=== PATIENT | female | born 1995 | race African-American/Black ===

== ENCOUNTER 2016-03-11 20:23 | Emergency (ER) | payer OTHER ==
[~2016-03-11] VITALS: Ht 149.9 cm; Wt 107.2 kg
[~2016-03-11 20:23] MED LIST: ANUSOL1 SUPP PR; ATARAX,VISTARIL25 MG PO; CEPHALEXIN250 MG/5 M PO; CEPHALEXIN500 MG PO; CETIRIZINE HCL10 M2 PO; COLACE50 MG PO; ENDOCET 5-3251 EACH PO; FEROSUL220 MG/51 PO; FLEXERIL10 MG PO; FLUTICASONE PRO16 GM BOTH NARES; IBUPROFEN800 MG PO; KEFLEX500 MG PO; LEVAQUIN500 MG PO; MOBIC15 MG PO; MOTRIN600 MG PO; MOTRIN800 MG PO; MUCINEX D ER T1 EACH PO; NAPROSYN500 MG PO; NASONEX17 GM BOTH NARES; NO HOME MEDS; OXYCODONE H5 MG/5 ML PO; PERCOCET 5/31 TABLET PO; PREDNISONE20 MG PO; PROMETHAZINE HC25 M1 PO; TESSALON PERLE100 MG PO; ZOFRAN4 MG PO; ZYRTEC10 M1 PO
[2016-03-11 21:04] LABS: HEMATOCRIT 41.1 % (36.0-46.0); MCH 28.3 PG (29.0-34.0); MCHC 32.6 G/DL (30.0-36.0); MCV 86.9 FL (83-99); MEAN PLAT.VOLUME 10.6 uM^3 (9.5-12.4); PLATELET COUNT 336 K/uL (156-360); RBC DIS.WIDTH-CV 12.8 % (11.8-14.6); RBC DIS.WIDTH-SD 39.9 % (39-53); RED BLOOD COUNT 4.73 M/uL (3.80-5.20); WHITE BLOOD COUNT 13.9 K/uL (4.1-10.2)
[2016-03-11 22:53] LABS: BILIRUBIN NEGATIVE; BLOOD NEGATIVE; COLOR DK YELLOW ((YELLOW)); GLUCOSE (STRIP) NEGATIVE; KETONES TRACE; LEUKOCYTES NEGATIVE; NITRITE NEGATIVE; PROTEIN (STRIP) TRACE; SPECIFIC GRAVITY 1.031 (1.000-1.030)
[2016-03-11 22:56] LABS: ADD MIUA? NO; UCUL ADDED? NO
[2016-03-12 00:27] VITALS: BP 128/77
[2016-03-13 13:44] LABS: CHLAMYDIA TRACHOMATIS NEGATIVE; NEISSERIA GONORRHOEAE NEGATIVE
== END 2016-03-12 00:28 | disposition home or self-care (01) ==
LOC: RME 20:23 → EME 20:23 → RME 03-12 00:28
PROVIDERS: Physician Assistant
DX: R10.30 Lower abdominal pain, unspecified (principal); R19.7 Diarrhea, unspecified; R51 Headache
CPT/HCPCS: 76856; 81003; 84702; 85027; 86900; 86901; 87210; 87491; 87591; 99281; 99284

== ENCOUNTER 2016-07-05 17:13 | Emergency (ER) | payer OTHER ==
[~2016-07-05] VITALS: Ht 149.9 cm; Wt 100.0 kg
[2016-07-05 18:13] LABS: BASOPHIL COUNT 0.1 K/uL (0-0.1); EOSINOPHIL (%) 0.7 % (0-5); EOSINOPHIL COUNT 0.1 K/uL (0-0.3); HEMATOCRIT 40.5 % (36.0-46.0); IMMATURE GRANULOCYTE (%) 0.4 % (0.0-0.7); INSTRUMENT ABS NEUTROPHIL CT 5.5 K/uL; LYMPHOCYTE COUNT 3.8 K/uL (1.0-2.8); MCH 27.4 PG (29.0-34.0); MCHC 31.4 G/DL (30.0-36.0); MCV 87.3 FL (83-99); MEAN PLAT.VOLUME 11.4 uM^3 (9.5-12.4); MONOCYTE (%) 5.3 % (3-12); MONOCYTE COUNT 0.5 K/uL (0-0.8); NEUTROPHIL (%) 55.1 % (45-76); NEUTROPHIL COUNT 5.5 K/uL (1.8-6.4); PLATELET COUNT 267 K/uL (156-360); RBC DIS.WIDTH-CV 13.1 % (11.8-14.6); RBC DIS.WIDTH-SD 41.6 % (39-53); RED BLOOD COUNT 4.64 M/uL (3.80-5.20)
[2016-07-05 18:23] LABS: CHLORIDE 107 mEq/L (99-109); POTASSIUM 4.4 mEq/L (3.7-5.4); SODIUM 138 mEq/L (136-147)
[2016-07-05 18:26] LABS: GLUCOSE 129 mg/dL (70-99)
[2016-07-05 18:27] LABS: ANION GAP 9 MEQ/L (2-14)
[2016-07-05 18:28] LABS: TOTAL BILIRUBIN 0.2 mg/dL (0.0-1.0)
[2016-07-05 18:29] LABS: ALKALINE PHOSPHATASE 44 IU/L (3-129); GFR ESTIMATE (CALCULATED) > 59 mL/min/
[2016-07-05 18:31] LABS: UREA NITROGEN (BUN) 11 mg/dL (9-23)
[2016-07-05 18:33] LABS: LIPASE 38 U/L (1.0-51.0)
[2016-07-05 18:38] LABS: QUANTITATIVE HCG 14.8 MIU/ML
[2016-07-05 18:39] LABS: ADD MIUA? YES; BILIRUBIN NEGATIVE; BLOOD SMALL; COLOR YELLOW ((YELLOW)); GLUCOSE (STRIP) NEGATIVE; KETONES NEGATIVE; LEUKOCYTES TRACE; NITRITE NEGATIVE; PROTEIN (STRIP) NEGATIVE; SPECIFIC GRAVITY 1.023 (1.000-1.030); UROBILINOGEN 0.2 MG/DL (0.2-1.0)
[2016-07-05 18:51] LABS: BACTERIA NONE SEEN /HPF; EPITHELIAL CELLS RARE /HPF; MUCUS TRACE /LPF; WHITE BLOOD CELLS 0-5 /HPF (0-5)
[2016-07-05] MEDS ORDERED: MIRALAX255 GM PO (19:21)
[2016-07-05] MEDS ORDERED: BENTYL20 MG PO (19:21)
[2016-07-05 19:52] VITALS: BP 119/71
== END 2016-07-05 19:52 | disposition home or self-care (01) ==
LOC: EME 17:13
PROVIDERS: Physician Assistant
DX: R10.30 Lower abdominal pain, unspecified (principal); K59.00 Constipation, unspecified; R79.89 Other specified abnormal findings of blood chemistry
CPT/HCPCS: 74000; 80053; 81003; 83690; 84702; 85025; 99281; 99284

== ENCOUNTER 2016-07-16 09:00 | Emergency (ER) | payer OTHER ==
[~2016-07-16] VITALS: Ht 149.9 cm; Wt 103.2 kg
[~2016-07-16 09:00] MED LIST changes: +BENTYL20 MG PO; +MIRALAX255 GM PO
[2016-07-16 09:06] VITALS: BP 132/90
[2016-07-16 09:32] LABS: ADD MIUA? YES; BILIRUBIN NEGATIVE; BLOOD NEGATIVE; COLOR YELLOW ((YELLOW)); GLUCOSE (STRIP) NEGATIVE; KETONES NEGATIVE; LEUKOCYTES NEGATIVE; NITRITE NEGATIVE; PROTEIN (STRIP) NEGATIVE; SPECIFIC GRAVITY 1.023 (1.000-1.030); UROBILINOGEN 0.2 MG/DL (0.2-1.0)
[2016-07-16 09:41] LABS: BACTERIA NONE SEEN /HPF; EPITHELIAL CELLS 1+ /HPF; MUCUS TRACE /LPF; RED BLOOD CELLS 0-5 /HPF (0-5); UCUL ADDED? NO
[2016-07-16 10:06] LABS: HEMATOCRIT 38.4 % (36.0-46.0); MCH 27.2 PG (29.0-34.0); MCV 87.9 FL (83-99); MEAN PLAT.VOLUME 11.4 uM^3 (9.5-12.4); PLATELET COUNT 288 K/uL (156-360); RBC DIS.WIDTH-CV 13.3 % (11.8-14.6); RBC DIS.WIDTH-SD 43.1 % (39-53); RED BLOOD COUNT 4.37 M/uL (3.80-5.20); WHITE BLOOD COUNT 11.5 K/uL (4.1-10.2)
[2016-07-16 10:14] LABS: CHLORIDE 107 mEq/L (99-109); POTASSIUM 4.3 mEq/L (3.7-5.4); SODIUM 140 mEq/L (136-147)
[2016-07-16 10:16] LABS: GLUCOSE 137 mg/dL (70-99)
[2016-07-16 10:17] LABS: ANION GAP 7 MEQ/L (2-14)
[2016-07-16 10:18] LABS: TOTAL BILIRUBIN 0.2 mg/dL (0.0-1.0)
[2016-07-16 10:19] LABS: ALKALINE PHOSPHATASE 41 IU/L (3-129)
[2016-07-16 10:20] LABS: GFR ESTIMATE (CALCULATED) > 59 mL/min/
[2016-07-16 10:21] LABS: UREA NITROGEN (BUN) 10 mg/dL (9-23)
[2016-07-16 10:31] LABS: QUANTITATIVE HCG 2503.2 MIU/ML
== END 2016-07-16 13:55 | disposition left against medical advice (07) ==
LOC: EME 09:00
DX: O26.891 Other specified pregnancy related conditions, first trimester (principal); R10.84 Generalized abdominal pain; Z3A.01 Less than 8 weeks gestation of pregnancy
CPT/HCPCS: 76705; 80053; 81003; 84702; 85027; 99281; 99284

== ENCOUNTER 2016-08-30 21:56 | Emergency (ER) | payer OTHER ==
[~2016-08-30] VITALS: Ht 149.9 cm; Wt 100.9 kg
[2016-08-30 23:05] LABS: HEMATOCRIT 35.5 % (36.0-46.0); MCH 27.7 PG (29.0-34.0); MCHC 32.1 G/DL (30.0-36.0); MCV 86.2 FL (83-99); MEAN PLAT.VOLUME 11.2 uM^3 (9.5-12.4); PLATELET COUNT 205 K/uL (156-360); RBC DIS.WIDTH-CV 13.2 % (11.8-14.6); RBC DIS.WIDTH-SD 41.3 % (39-53); RED BLOOD COUNT 4.12 M/uL (3.80-5.20); WHITE BLOOD COUNT 9.5 K/uL (4.1-10.2)
[2016-08-30 23:18] LABS: CHLORIDE 104 mEq/L (99-109); POTASSIUM 3.5 mEq/L (3.7-5.4); SODIUM 137 mEq/L (136-147)
[2016-08-30 23:20] LABS: GLUCOSE 123 mg/dL (70-99)
[2016-08-30 23:21] LABS: ANION GAP 9 MEQ/L (2-14)
[2016-08-30 23:24] LABS: GFR ESTIMATE (CALCULATED) > 59 mL/min/
[2016-08-30 23:25] LABS: UREA NITROGEN (BUN) 8 mg/dL (9-23)
[2016-08-30 23:59] LABS: QUANTITATIVE HCG 33639.2 MIU/ML
[2016-08-31 01:26] VITALS: BP 118/67
[2016-08-31 01:34] LABS: ADD MIUA? YES; BILIRUBIN NEGATIVE; BLOOD MODERATE; COLOR YELLOW ((YELLOW)); GLUCOSE (STRIP) NEGATIVE; KETONES NEGATIVE; LEUKOCYTES TRACE; NITRITE POSITIVE; PROTEIN (STRIP) 30; SPECIFIC GRAVITY 1.023 (1.000-1.030); UROBILINOGEN 0.2 MG/DL (0.2-1.0)
[2016-08-31 01:59] LABS: BACTERIA NONE SEEN /HPF; EPITHELIAL CELLS RARE /HPF; MUCUS TRACE /LPF; RED BLOOD CELLS 0-5 /HPF (0-5)
== END 2016-08-31 01:27 | disposition home or self-care (01) ==
LOC: EME 21:56
PROVIDERS: Nurse Practitioner Family
DX: O20.0 Threatened abortion (principal); O20.9 Hemorrhage in early pregnancy, unspecified; O26.891 Other specified pregnancy related conditions, first trimester; Z3A.11 11 weeks gestation of pregnancy
CPT/HCPCS: 76801; 80048; 81003; 83030; 84702; 85027; 86850; 86900; 86901; 99281; 99284; J2790

== ENCOUNTER 2016-10-26 19:13 | Emergency (ER) | payer OTHER ==
[~2016-10-26] VITALS: Ht 149.9 cm; Wt 101.0 kg
[2016-10-26 19:37] LABS: ADD MIUA? YES; BILIRUBIN NEGATIVE; BLOOD NEGATIVE; COLOR YELLOW ((YELLOW)); GLUCOSE (STRIP) NEGATIVE; KETONES NEGATIVE; LEUKOCYTES TRACE; NITRITE NEGATIVE; PROTEIN (STRIP) NEGATIVE; SPECIFIC GRAVITY 1.016 (1.000-1.030); UROBILINOGEN 0.2 MG/DL (0.2-1.0)
[2016-10-26 19:47] LABS: HEMATOCRIT 34.2 % (36.0-46.0); MCH 28.1 PG (29.0-34.0); MCHC 32.7 G/DL (30.0-36.0); MCV 85.9 FL (83-99); MEAN PLAT.VOLUME 11.5 uM^3 (9.5-12.4); PLATELET COUNT 200 K/uL (156-360); RBC DIS.WIDTH-CV 13.4 % (11.8-14.6); RED BLOOD COUNT 3.98 M/uL (3.80-5.20); WHITE BLOOD COUNT 10.1 K/uL (4.1-10.2)
[2016-10-26 20:00] LABS: CHLORIDE 107 mEq/L (99-109); POTASSIUM 3.7 mEq/L (3.7-5.4); SODIUM 138 mEq/L (136-147)
[2016-10-26 20:02] LABS: GLUCOSE 101 mg/dL (70-99)
[2016-10-26 20:03] LABS: ANION GAP 9 MEQ/L (2-14)
[2016-10-26 20:04] LABS: TOTAL BILIRUBIN 0.2 mg/dL (0.0-1.0)
[2016-10-26 20:05] LABS: ALKALINE PHOSPHATASE 31 IU/L (3-129); GFR ESTIMATE (CALCULATED) > 59 mL/min/
[2016-10-26 20:07] LABS: EPITHELIAL CELLS 1+ /HPF; RED BLOOD CELLS NONE SEEN /HPF (0-5); WHITE BLOOD CELLS 0-5 /HPF (0-5)
[2016-10-26 20:07] LABS: UREA NITROGEN (BUN) 7 mg/dL (9-23)
[2016-10-26 20:08] LABS: BACTERIA RARE /HPF; MUCUS RARE /LPF; UCUL ADDED? NO
[2016-10-26 20:09] LABS: CASTS NONE SEEN /LPF; CRYSTALS NONE SEEN
[2016-10-26 20:15] LABS: QUANTITATIVE HCG 5923.7 MIU/ML
[2016-10-26 20:30] LABS: LIPASE 36 U/L (1.0-51.0)
[2016-10-26 22:07] VITALS: BP 91/53
== END 2016-10-26 22:08 | disposition home or self-care (01) ==
LOC: EME 19:13
DX: O99.012 Anemia complicating pregnancy, second trimester (principal); O26.892 Other specified pregnancy related conditions, second trimester; R10.9 Unspecified abdominal pain; Z3A.19 19 weeks gestation of pregnancy
CPT/HCPCS: 76805; 80053; 81003; 83690; 84702; 85027; 99281; 99284

== ENCOUNTER → 2016-12-25 | Outpatient (CLI) | payer OTHER ==
[~2016-12-25] VITALS: Ht 149.9 cm; Wt 100.9 kg
[2016-12-25 10:24] VITALS: BP 97/62
== END | disposition home or self-care (01) ==
LOC: IVINF 10:12
DX: Z31.82 Encounter for Rh incompatibility status (principal); Z3A.28 28 weeks gestation of pregnancy; Z67.11 Type A blood, Rh negative
CPT/HCPCS: 96372; J2790

== ENCOUNTER 2017-03-11 07:31 | Inpatient (IN) | payer OTHER ==
[2017-03-11] VITALS (8 sets, daily range): BP systolic 90–117; BP diastolic 38–65
[~2017-03-11] VITALS: Ht 149.9 cm; Wt 103.6 kg
[2017-03-11 08:56] LABS: BASOPHIL (%) 0.4 % (0-1); EOSINOPHIL (%) 0.8 % (0-5); EOSINOPHIL COUNT 0.1 K/uL (0-0.3); HEMATOCRIT 32.4 % (36.0-46.0); IMMATURE GRANULOCYTE (%) 0.4 % (0.0-0.7); LYMPHOCYTE (%) 26.2 % (15-42); LYMPHOCYTE COUNT 1.9 K/uL (1.0-2.8); MCH 25.3 PG (29.0-34.0); MCHC 30.9 G/DL (30.0-36.0); MCV 81.8 FL (83-99); MONOCYTE (%) 7.7 % (3-12); MONOCYTE COUNT 0.6 K/uL (0-0.8); NEUTROPHIL (%) 64.5 % (45-76); NEUTROPHIL COUNT 4.7 K/uL (1.8-6.4); PLATELET COUNT 175 K/uL (156-360); RBC DIS.WIDTH-CV 14.3 % (11.8-14.6); RED BLOOD COUNT 3.96 M/uL (3.80-5.20); WHITE BLOOD COUNT 7.3 K/uL (4.1-10.2)
[2017-03-11] MEDS ORDERED: MOTRIN800 MG PO (11:40)
[2017-03-11] MEDS ORDERED: PERCOCET 5/31 TABLET PO (11:40)
[2017-03-11] MEDS ORDERED: OXYCODONE H5 MG/5 ML PO (16:19)
[2017-03-12] VITALS: BP 98/52
[2017-03-12 02:40] VITALS: BP 100/59
[2017-03-12 05:23] LABS: BASOPHIL (%) 0.2 % (0-1); EOSINOPHIL (%) 0.3 % (0-5); HEMOGLOBIN 8.7 G/DL (11.9-15.5); IMMATURE GRANULOCYTE (%) 0.3 % (0.0-0.7); LYMPHOCYTE (%) 14.9 % (15-42); LYMPHOCYTE COUNT 1.4 K/uL (1.0-2.8); MCH 24.9 PG (29.0-34.0); MCV 82.9 FL (83-99); MONOCYTE (%) 7.1 % (3-12); MONOCYTE COUNT 0.7 K/uL (0-0.8); NEUTROPHIL (%) 77.2 % (45-76); NEUTROPHIL COUNT 7.4 K/uL (1.8-6.4); PLATELET COUNT 163 K/uL (156-360); RBC DIS.WIDTH-CV 14.5 % (11.8-14.6); RBC DIS.WIDTH-SD 43.4 % (39-53); WHITE BLOOD COUNT 9.6 K/uL (4.1-10.2)
[2017-03-12 07:18] VITALS: BP 130/61
[2017-03-12 11:45] VITALS: BP 133/61
[2017-03-12 16:03] VITALS: BP 131/63
[2017-03-13 10:19] LABS: BASOPHIL (%) 0.1 % (0-1); EOSINOPHIL (%) 0.6 % (0-5); EOSINOPHIL COUNT 0.1 K/uL (0-0.3); HEMATOCRIT 26.5 % (36.0-46.0); HEMOGLOBIN 8.1 G/DL (11.9-15.5); IMMATURE GRANULOCYTE (%) 0.4 % (0.0-0.7); LYMPHOCYTE (%) 18.6 % (15-42); MCH 25.4 PG (29.0-34.0); MCHC 30.6 G/DL (30.0-36.0); MCV 83.1 FL (83-99); MONOCYTE COUNT 0.8 K/uL (0-0.8); NEUTROPHIL (%) 72.3 % (45-76); NEUTROPHIL COUNT 7.6 K/uL (1.8-6.4); PLATELET COUNT 179 K/uL (156-360); RBC DIS.WIDTH-CV 14.6 % (11.8-14.6); RBC DIS.WIDTH-SD 43.8 % (39-53); RED BLOOD COUNT 3.19 M/uL (3.80-5.20); WHITE BLOOD COUNT 10.5 K/uL (4.1-10.2)
[2017-03-14 07:48] VITALS: BP 123/57
[2017-03-14 15:44] VITALS: BP 122/58
[2017-03-14 23:36] VITALS: BP 113/59
[2017-03-15 07:10] VITALS: BP 130/76
== END 2017-03-15 14:12 | disposition home or self-care (01) | DRG 765 ==
LOC: 2WEST 07:31 → 2SOUTH 09:28 → 2WEST 03-14 19:27
PROVIDERS: Nurse Practitioner; Obstetrics & Gynecology
PROC: 10D00Z1 Extraction of Products of Conception, Low, Open Approach (ICD-10-PCS; principal; 2017-03-11)
DX: O99.214 Obesity complicating childbirth (principal); D62 Acute posthemorrhagic anemia; Z37.0 Single live birth; O99.344 Other mental disorders complicating childbirth; O99.02 Anemia complicating childbirth; O34.211 Maternal care for low transverse scar from previous cesarean delivery; E66.01 Morbid (severe) obesity due to excess calories; Z68.41 Body mass index [BMI] 40.0-44.9, adult; Z3A.39 39 weeks gestation of pregnancy; F41.9 Anxiety disorder, unspecified; D50.9 Iron deficiency anemia, unspecified; K66.0 Peritoneal adhesions (postprocedural) (postinfection); Z80.3 Family history of malignant neoplasm of breast
CPT/HCPCS: 82948; 83030; 85025; 86850; 86900; 86901; J0690; J1170; J1200; J2274; J2590; J2790; J3010; J7120

== ENCOUNTER 2017-07-12 22:38 | Emergency (ER) | payer OTHER ==
[~2017-07-12] VITALS: Ht 147.3 cm; Wt 99.5 kg
[2017-07-13 00:11] VITALS: BP 127/97
== END 2017-07-13 00:12 | disposition home or self-care (01) ==
LOC: EME 22:38
DX: T17.228A Food in pharynx causing other injury, initial encounter (principal); S93.401A Sprain of unspecified ligament of right ankle, initial encounter
CPT/HCPCS: 71046; 73610; 99281; 99284

== ENCOUNTER 2017-10-01 02:55 | Emergency (ER) | payer OTHER ==
[~2017-10-01] VITALS: Ht 149.9 cm; Wt 105.6 kg
[2017-10-01 03:39] LABS: BASOPHIL (%) 0.8 % (0-1); BASOPHIL COUNT 0.1 K/uL (0-0.1); EOSINOPHIL (%) 0.6 % (0-5); EOSINOPHIL COUNT 0.1 K/uL (0-0.3); HEMATOCRIT 37.6 % (36.0-46.0); HEMOGLOBIN 11.8 G/DL (11.9-15.5); IMMATURE GRANULOCYTE (%) 0.3 % (0.0-0.7); LYMPHOCYTE (%) 36.4 % (15-42); LYMPHOCYTE COUNT 3.8 K/uL (1.0-2.8); MCH 26.4 PG (29.0-34.0); MCHC 31.4 G/DL (30.0-36.0); MCV 84.1 FL (83-99); MONOCYTE (%) 5.8 % (3-12); MONOCYTE COUNT 0.6 K/uL (0-0.8); NEUTROPHIL (%) 56.1 % (45-76); NEUTROPHIL COUNT 5.8 K/uL (1.8-6.4); PLATELET COUNT 264 K/uL (156-360); RBC DIS.WIDTH-CV 13.9 % (11.8-14.6); RBC DIS.WIDTH-SD 42.8 % (39-53); RED BLOOD COUNT 4.47 M/uL (3.80-5.20); WHITE BLOOD COUNT 10.4 K/uL (4.1-10.2)
[2017-10-01 03:47] LABS: CHLORIDE 104 mEq/L (99-109); POTASSIUM 4.3 mEq/L (3.7-5.4); SODIUM 137 mEq/L (136-147)
[2017-10-01 04:07] LABS: GLUCOSE 104 mg/dL (70-99)
[2017-10-01 04:11] LABS: CREATININE 0.7 mg/dL (0.6-1.3); GFR ESTIMATE (CALCULATED) > 59 mL/min/
[2017-10-01 04:12] LABS: UREA NITROGEN (BUN) 13 mg/dL (9-23)
[2017-10-01 05:06] LABS: QUANTITATIVE HCG 38602.7 MIU/ML
[2017-10-01 05:30] LABS: APPEARANCE SL.HAZY ((CLEAR)); BILIRUBIN NEGATIVE; BLOOD LARGE; COLOR YELLOW ((YELLOW)); GLUCOSE (STRIP) NEGATIVE; KETONES NEGATIVE; LEUKOCYTES NEGATIVE; NITRITE NEGATIVE; PROTEIN (STRIP) NEGATIVE; UROBILINOGEN 0.2 MG/DL (0.2-1.0)
[2017-10-01 05:40] LABS: BACTERIA NONE SEEN /HPF; EPITHELIAL CELLS 2+ /HPF; MUCUS 1+ /LPF; RED BLOOD CELLS 0-5 /HPF (0-5); UCUL ADDED? NO; WHITE BLOOD CELLS 0-5 /HPF (0-5)
[2017-10-01 08:57] VITALS: BP 131/72
== END 2017-10-01 09:03 | disposition home or self-care (01) ==
LOC: EME 02:55
PROVIDERS: Emergency Medicine
DX: O20.0 Threatened abortion (principal); Z3A.01 Less than 8 weeks gestation of pregnancy
CPT/HCPCS: 76801; 80048; 81003; 83030; 84702; 85025; 86850; 86900; 86901; 99281; 99284; J2790